=== PATIENT | male | born 1990 | race Caucasian/White ===

== ENCOUNTER 2019-03-08 13:55 | Outpatient (CLI) | payer OTHER | END 2019-03-08 23:59 | disposition home or self-care (01) | LOC: RAD 13:55 | PROVIDERS: ATTEND Physician Assistant | DX: S29.011A Strain of muscle and tendon of front wall of thorax, initial encounter (principal); X58.XXXA Exposure to other specified factors, initial encounter; Y92.89 Other specified places as the place of occurrence of the external cause; Y93.89 Activity, other specified; Y99.8 Other external cause status | CPT/HCPCS: 71550 ==